=== PATIENT | female | born 1970 | race Caucasian/White ===

== ENCOUNTER 2018-01-17 12:18 | Emergency (ER) | payer BC, SELFPAY ==
[2018-01-17] VITALS (7 sets, daily range): BP systolic 109–135; BP diastolic 68–78; PULSE 78–91; RESP 12–18; TEMP 36.8; O2SAT 99–100
--- NOTE | 2018-01-17 12:29 | ED_ITS ---
HPI - Abdominal Pain <AMPARO Cat - Last Filed: 01/17/18 21:46> General Chief Complaint: Abdominal Pain Stated Complaint: lower right abdominal pain,thinks appendicitis Time Seen by Provider: 01/17/18 12:29 History of Present Illness HPI narrative: 47-year-old female here for complaint of pain into her abdomen right lower quadrant for the past week. She states the pain has worsened over the past day or 2. She describes the pain as stabbing pain. She denies any trauma to the area. She denies any stressors or relievers of the pain. Positive nausea no vomiting. No fevers no chills. She denies any urinary symptoms. Last bowel movement was earlier today and was diarrhea. She denies any recent antibiotic use. She denies any vaginal discharge or bleeding. No other concerns or complaints MD complaint: abdominal pain Related Data Home Medications Medication Instructions Recorded Confirmed alprazolam 1 tab PO DAILY PRN 01/17/18 01/17/18 buspirone 1 tab PO TID 01/17/18 01/17/18 citalopram 20 mg PO DAILY 01/17/18 01/17/18 clindamycin phosphate 1 applic TOPICAL BID 01/17/18 01/17/18 famotidine 20 mg PO DAILY 01/17/18 01/17/18 guaifenesin [Mucinex] 600 mg PO Q12H PRN 01/17/18 01/17/18 triamcinolone acetonide 1 applic TOPICAL BID 01/17/18 01/17/18 Allergies Allergy/AdvReac Type Severity Reaction Status Date / Time No Known Drug Allergies Allergy Verified 01/17/18 12:36 Review of Systems <AMPARO Cat - Last Filed: 01/17/18 21:46> Constitutional Denies chills, Denies fatigue, Denies fever(s), Denies lethargy and Denies weakness Eyes Denies change in vision, Denies eye discharge, Denies irritation and Denies loss of vision ENT Ears, Nose, Mouth, and Throat: Denies change in voice, Denies neck pain and Denies sore throat Cardiovascular Denies dyspnea and Denies dyspnea on exertion Respiratory Denies cough, Denies dyspnea, Denies dyspnea on exertion and Denies wheezing Gastrointestinal Gastrointestinal: Reports abdominal pain Genitourinary Denies hematuria, Denies flank pain, Denies urinary incontinence and Denies urinary urgency Musculoskeletal Denies neck pain Integumentary/Breasts Denies pruritus, Denies erythema, Denies rash and Denies wounds Neurologic Denies confusion, Denies loss of vision and Denies weakness Psychiatric Denies anxiety, Denies confusion, Denies depression, Denies homicidal ideation and Denies suicidal ideation Endocrine Denies fatigue and Denies flushing Allergic/Immunologic Denies wheezing Exam <AMPARO Cat - Last Filed: 01/17/18 21:46> Initial Vital Signs Initial Vital Signs: Vital Signs Temperature 98.2 F 01/17/18 12:34 Pulse Rate 91 H 01/17/18 12:34 Respiratory Rate 18 01/17/18 12:34 Blood Pressure 135/74 H 01/17/18 12:34 Pulse Oximetry 100 01/17/18 12:34 Const General: cooperative and well developed Nutritional Appearance: well nourished Orientation: alert, awake, oriented x3 and not confused HENMT Mouth: oral mucosae normal and moist mucous membranes Eyes Sclera: sclerae normal Cornea: corneas normal Pupils: PERRL EOM: EOM intact bilaterally Resp Effort & Inspection: normal respiratory effort, able to speak in complete sentences, no respiratory distress and no use of accessory muscles Auscultation: clear to auscultation bilaterally, no rales, no rhonchi and no wheezes Cardio Rate: regular rate Rhythm: regular rhythm Heart Sounds: no click, no gallops, no murmurs and no rubs GI Inspection: non-distended Palpation: soft, no hepatosplenomegaly, No guarding, No pulsatile mass and tender (tenderness right lower quadrant) Auscultation: normal bowel sounds <Shemar العلي DO - Last Filed: 01/18/18 07:14> Initial Vital Signs Initial Vital Signs: Vital Signs Temperature 98.2 F 01/17/18 12:34 Pulse Rate 91 H 01/17/18 12:34 Respiratory Rate 18 01/17/18 12:34 Blood Pressure 135/74 H 01/17/18 12:34 Pulse Oximetry 100 01/17/18 12:34 Course <AMPARO Cat - Last Filed: 01/17/18 21:46> Orders Ordered: Discontinued Medications Sodium Chloride (Normal Saline 0.9%) 1,000 mls @ 1,000 mls/hr IV BOLUS ONE Stop: 01/17/18 14:11 Last Infusion: 01/17/18 15:00 Dose: 0 mls/hr Admin: 01/17/18 13:25 Dose: 1,000 mls/hr Ketorolac Tromethamine (Toradol) 30 mg IV NOW ONE Stop: 01/17/18 13:13 Last Admin: 01/17/18 13:24 Dose: 30 mg Ondansetron HCl (Zofran) 4 mg IV NOW ONE Stop: 01/17/18 13:13 Last Admin: 01/17/18 13:24 Dose: 4 mg Vital Signs - 8 hr 01/17/18 13:48 01/17/18 14:45 01/17/18 15:00 Pulse Rate 78 88 84 Respiratory Rate 12 Blood Pressure [Right Arm] 117/71 111/68 109/73 Pulse Oximetry 99 100 100 01/17/18 15:25 01/17/18 15:30 01/17/18 16:02 Pulse Rate 86 81 Respiratory Rate Blood Pressure [Right Arm] 119/78 119/78 122/74 H Pulse Oximetry 100 100 100 <Shemar العلي DO - Last Filed: 01/18/18 07:14> Orders Ordered: Discontinued Medications Sodium Chloride (Normal Saline 0.9%) 1,000 mls @ 1,000 mls/hr IV BOLUS ONE Stop: 01/17/18 14:11 Last Infusion: 01/17/18 15:00 Dose: 0 mls/hr Admin: 01/17/18 13:25 Dose: 1,000 mls/hr Ketorolac Tromethamine (Toradol) 30 mg IV NOW ONE Stop: 01/17/18 13:13 Last Admin: 01/17/18 13:24 Dose: 30 mg Ondansetron HCl (Zofran) 4 mg IV NOW ONE Stop: 01/17/18 13:13 Last Admin: 01/17/18 13:24 Dose: 4 mg Vital Signs - 8 hr 01/17/18 13:48 01/17/18 14:45 01/17/18 15:00 Pulse Rate 78 88 84 Respiratory Rate 12 Blood Pressure [Right Arm] 117/71 111/68 109/73 Pulse Oximetry 99 100 100 01/17/18 15:25 01/17/18 15:30 01/17/18 16:02 Pulse Rate 86 81 Respiratory Rate Blood Pressure [Right Arm] 119/78 119/78 122/74 H Pulse Oximetry 100 100 100 MDM - Abdominal Pain <AMPARO Cat - Last Filed: 01/17/18 21:46> Lab Data Result diagrams: 01/17/18 13:20 01/17/18 13:20 Lab Results 01/17/18 01/17/18 Range/Units 13:20 13:20 WBC 7.5 (4.5-11.0) X10^3/uL RBC 3.69 L (4.0-5.2) X10^6/uL Hgb 13.2 (12.0-16.0) g/dL Hct 38.0 (36-46) % MCV 102.9 H (80-100) fL MCH 35.9 H (26-34) PG MCHC 34.8 (30-36) % RDW 12.9 (11.6-14.8) % Plt Count 305 (150-400) X10^3/uL Neut % (Auto) 71.1 (50-75) % Lymph % (Auto) 16.7 L (25-40) % [place] % (Auto) 7.1 (3-14) % Eos % (Auto) 4.4 H (2-4) % Baso % (Auto) 0.7 (0-2) % Neut # (Auto) 5300 (5601-3360) /uL Sodium 138 (137-145) mmol/L Potassium 4.6 (3.4-5.1) mmol/L Chloride 103 (98-107) mmol/L Carbon Dioxide 26 (22-32) mmol/L BUN 12 (7-17) mg/dL Creatinine 0.80 (0.52-1.04) mg/dL Estimated GFR > 60.0 (>60) mL/min BUN/Creatinine Ratio 15.0 (6-22) Glucose 97 (70-100) mg/dL Calcium 9.4 (8.4-10.2) mg/dL Total Bilirubin 0.4 (0.2-1.3) mg/dL AST 23 (14-36) IU/L ALT 26 (9-52) IU/L Alkaline Phosphatase 80 (38-126) U/L Total Protein 7.1 (6.3-8.2) g/dL Albumin 4.1 (3.5-5.0) g/dL Globulin 3.0 (1.7-4.1) g/dL Albumin/Globulin Ratio 1.4 (1.0-2.8) Lipase 94 (23-300) U/L Imaging Data CT scan - abdomen: Radiologist's impression: PROCEDURE: CT ABDOMEN PELVIS W CON INDICATIONS: Pain to right lower quadrant TECHNIQUE: After the administration of intravenous contrast, 5 mm thick sections acquired from the diaphragm to the symphysis. 5 mm coronal and sagittal reformats were acquired. For radiation dose reduction, the following was used: automated exposure control, adjustment of mA and/or kV according to patient size. COMPARISON: None. FINDINGS: Image quality: Excellent. ABDOMEN: Lung bases: Bibasilar atelectasis. Normal heart size with no pericardial effusion. No hiatal hernia. Solid organs: Liver is normal in size and enhancement. Sub-5 mm hypodensities in the liver, series 3 images 17 and 24 are too small to characterize. Gallbladder appears clear. Biliary system is non dilated. Pancreas enhances normally. Spleen is normal in size and enhancement. No adrenal nodules. Kidneys demonstrate normal size and enhancement, without hydronephrosis. Peritoneum and bowel: Bowel loops demonstrate normal wall thickness and caliber. Normal appendix is seen. No free fluid or air. Nodes and vessels: No retroperitoneal or mesenteric adenopathy by size criteria. Aorta and inferior vena cava are normal in size. Miscellaneous: Fat filled supraumbilical hernia. PELVIS: Genitourinary: Bladder wall thickness is normal. Uterus contains an 8mm hypodensity centrally, probable fibroid. The cervix is prominent measuring 4.1 x 5.6 cm. The left ovary contains a 1.6 cm cyst. The right ovary contains 1.1 CM and 2.4 CM cyst. There is a small amount of right periovarian fluid. Trace free fluid in the cul-de-sac. Miscellaneous: No inguinal hernias or adenopathy. Bones: No suspicious bony lesions. No vertebral body compression fractures. IMPRESSION: 1. Slightly thickened wall 2.4 cm right ovarian cyst with mild periovarian free fluid suggesting leakage from the cyst. This may be causing right lower quadrant pain. Suggest pelvic sonography for further evaluation. 2. Normal appendix is demonstrated. No inflammatory bowel disease seen. 3. Small fat filled periumbilical hernia. Dictated by: Deshaun Mcknight M.D. on 01/17/2018 at 14:32 Approved by: Deshaun Mcknight M.D. on 01/17/2018 at 14:48 MDM Narrative Medical decision making narrative: CT of the abdomen and pelvis was obtained and shows a right ovarian cyst about 2-1/[address] with no other acute findings. CBC Chem panel and lipase were obtained and were unremarkable. Urinalysis was negative for urinary tract infection. [id number] Tylenol or Motrin as needed for discomfort. Follow up with primary care provider for further evaluation and monitoring. For any worsening symptoms return to the emergency room. <Shemar العلي DO - Last Filed: 01/18/18 07:14> Lab Data Lab Results 01/17/18 01/17/18 Range/Units 13:20 13:20 WBC 7.5 (4.5-11.0) X10^3/uL RBC 3.69 L (4.0-5.2) X10^6/uL Hgb 13.2 (12.0-16.0) g/dL Hct 38.0 (36-46) % MCV 102.9 H (80-100) fL MCH 35.9 H (26-34) PG MCHC 34.8 (30-36) % RDW 12.9 (11.6-14.8) % Plt Count 305 (150-400) X10^3/uL Neut % (Auto) 71.1 (50-75) % Lymph % (Auto) 16.7 L (25-40) % [place] % (Auto) 7.1 (3-14) % Eos % (Auto) 4.4 H (2-4) % Baso % (Auto) 0.7 (0-2) % Neut # (Auto) 5300 (5819-3775) /uL Sodium 138 (137-145) mmol/L Potassium 4.6 (3.4-5.1) mmol/L Chloride 103 (98-107) mmol/L Carbon Dioxide 26 (22-32) mmol/L BUN 12 (7-17) mg/dL Creatinine 0.80 (0.52-1.04) mg/dL Estimated GFR > 60.0 (>60) mL/min BUN/Creatinine Ratio 15.0 (6-22) Glucose 97 (70-100) mg/dL Calcium 9.4 (8.4-10.2) mg/dL Total Bilirubin 0.4 (0.2-1.3) mg/dL AST 23 (14-36) IU/L ALT 26 (9-52) IU/L Alkaline Phosphatase 80 (38-126) U/L Total Protein 7.1 (6.3-8.2) g/dL Albumin 4.1 (3.5-5.0) g/dL Globulin 3.0 (1.7-4.1) g/dL Albumin/Globulin Ratio 1.4 (1.0-2.8) Lipase 94 (23-300) U/L Discharge Plan Departure Patient Disposition: Home, Self-Care Clinical Impression: Cyst of right ovary Discharge Date/Time: 01/17/18 16:03 Interventions: ED Discharge Assessment Last Done: 01/17/18 16:03 Instructions: DI for Ovarian Cyst Activity Restrictions/Additional Instructions: CT the abdomen and pelvic ultrasound shows right ovarian cyst approximately 2-1/ 2 cm in size. Signs and symptoms presents as the cause of your pain into year right lower abdomen. Use [id number] Tylenol and Motrin as needed for discomfort. Follow up with her primary care provider next week for further evaluation and treatment and monitoring of the cyst. For any worsening symptoms return to the emergency room. Prescriptions: No Action triamcinolone acetonide 0.5 % cream 1 applic Topical BID RF: 0 alprazolam 0.5 mg tablet 1 tab PO DAILY PRN (Reason: Anxiety) RF: 0 citalopram 20 mg tablet 20 mg PO DAILY RF: 0 buspirone 10 mg tablet 1 tab PO TID RF: 0 clindamycin phosphate 1 % swab 1 applic Topical BID RF: 0 famotidine 20 mg Tablet 20 mg PO DAILY RF: 0 guaifenesin [Mucinex] 600 mg Tablet Extended Release 12hr 600 mg PO Q12H PRN (Reason: Allergy Symptoms) RF: 0 Referrals: [facility] [Provider Group] <Shemar العلي DO - Last Filed: 01/18/18 07:14> [facility]: I was available for consultation during this patient's emergency department encounter
--- NOTE | 2018-01-17 13:13 | DI.CT.S_ITS ---
PROCEDURE: CT ABDOMEN PELVIS W CON INDICATIONS: Pain to right lower quadrant TECHNIQUE: After the administration of intravenous contrast, 5 mm thick sections acquired from the diaphragm to the symphysis. 5 mm coronal and sagittal reformats were acquired. For radiation dose reduction, the following was used: automated exposure control, adjustment of mA and/or kV according to patient size. COMPARISON: None. FINDINGS: Image quality: Excellent. ABDOMEN: Lung bases: Bibasilar atelectasis. Normal heart size with no pericardial effusion. No hiatal hernia. Solid organs: Liver is normal in size and enhancement. Sub-5 mm hypodensities in the liver, series 3 images 17 and 24 are too small to characterize. Gallbladder appears clear. Biliary system is non dilated. Pancreas enhances normally. Spleen is normal in size and enhancement. No adrenal nodules. Kidneys demonstrate normal size and enhancement, without hydronephrosis. Peritoneum and bowel: Bowel loops demonstrate normal wall thickness and caliber. Normal appendix is seen. No free fluid or air. Nodes and vessels: No retroperitoneal or mesenteric adenopathy by size criteria. Aorta and inferior vena cava are normal in size. Miscellaneous: Fat filled supraumbilical hernia. PELVIS: Genitourinary: Bladder wall thickness is normal. Uterus contains an 8mm hypodensity centrally, probable fibroid. The cervix is prominent measuring 4.1 x 5.6 cm. The left ovary contains a 1.6 cm cyst. The right ovary contains 1.1 CM and 2.4 CM cyst. There is a small amount of right periovarian fluid. Trace free fluid in the cul-de-sac. Miscellaneous: No inguinal hernias or adenopathy. Bones: No suspicious bony lesions. No vertebral body compression fractures. IMPRESSION: 1. Slightly thickened wall 2.4 cm right ovarian cyst with mild periovarian free fluid suggesting leakage from the cyst. This may be causing right lower quadrant pain. Suggest pelvic sonography for further evaluation. 2. Normal appendix is demonstrated. No inflammatory bowel disease seen. 3. Small fat filled periumbilical hernia. Dictated by: Deshaun Mcknight M.D. on 01/17/2018 at 14:32 Approved by: Deshaun Mcknight M.D. on 01/17/2018 at 14:48
[2018-01-17] MEDS: KETOROLAC 60 MG/2 ML VIAL 30 MG IV (13:24)
[2018-01-17] MEDS: ONDANSETRON 4 MG/2 ML INJ IV (13:24)
[2018-01-17] MEDS: SODIUM CHLORIDE 0.9% 1,000 ML 1000 ML IV (13:25)
[2018-01-17 13:40] LABS: Add Manual Diff / Slide Review NO; Basophils Percent Auto 0.7 % (0-2); Eosinophils Percent Auto 4.4 % (2-4); Hemoglobin 13.2 g/dL (12.0-16.0); Lymphocytes Percent Auto 16.7 % (25-40); Mean Corpuscular HGB Conc 34.8 % (30-36); Mean Corpuscular Hemoglobin 35.9 PG (26-34); Mean Corpuscular Volume 102.9 fL (80-100); Monocytes Percent Auto 7.1 % (3-14); Neutrophils Absolute Auto 5300 /uL (3000-5900); Neutrophils Percent Auto 71.1 % (50-75); Platelet Count 305 X10^3/uL (150-400); Red Blood Cell Count 3.69 X10^6/uL (4.0-5.2); Red Cell Distribution Width 12.9 % (11.6-14.8); White Blood Cell Count 7.5 X10^3/uL (4.5-11.0)
[2018-01-17 13:52] LABS: Alanine Aminotransferase 26 IU/L (9-52); Albumin 4.1 g/dL (3.5-5.0); Albumin Globulin Ratio 1.4 (1.0-2.8); Alkaline Phosphatase 80 U/L (38-126); Aspartate Aminotransferase 23 IU/L (14-36); Bilirubin Total 0.4 mg/dL (0.2-1.3); Blood Urea Nitrogen 12 mg/dL (7-17); Calcium 9.4 mg/dL (8.4-10.2); Carbon Dioxide 26 mmol/L (22-32); Chloride 103 mmol/L (98-107); Estimated Glomerular Filt Rate > 60.0 mL/min (>60); Glucose 97 mg/dL (70-100); HEMOLYSIS < 15 (0-50); Lipase 94 U/L (23-300); Potassium 4.6 mmol/L (3.4-5.1); Sodium 138 mmol/L (137-145); Total Protein 7.1 g/dL (6.3-8.2)
--- NOTE | 2018-01-17 15:00 | DI.US.S_ITS ---
PROCEDURE: US PELVIC COMPLETE INDICATIONS: OVARIAN CYST ON CT TECHNIQUE: Real-time scanning was performed of the pelvic organs, with image documentation. Additional endovaginal scanning was necessary due to incomplete visualization of the adnexal and endometrial structures by transabdominal scanning. COMPARISON: [facility], CT, CT ABDOMEN PELVIS W CON, 01/17/2018, 13:54. FINDINGS: Transabdominal scanning: Limited scanning through the kidneys shows no hydronephrosis. No pathologic free abdominal or pelvic fluid. Endovaginal scanning: Uterus: Uterus is normal in size at 7.1 x 3.8 x 4.2 cm. The endometrium measures 8.6 mm in combined thickness. Ovaries: The right ovary measures 40 x 22 x 26 mm. There is a complex area of heteroechogenicity in the right ovary, measuring 25 x 19 x 21 mm. A second focus of hypoechogenicity is present measuring 14 x 15 x 14 mm. The left ovary measures 26 x 16 x 21 mm. Focus of hypoechogenicity is present measuring 11 x 12 x 13 mm. IMPRESSION: 1. Complex right ovarian cyst. This could be hemorrhagic. Given size, no additional followup is recommended, unless clinical symptoms/concern persist. 2. Bilateral prominent ovarian follicles are noted. Dictated by: Sharri Duran M.D. on 01/17/2018 at 15:55 Approved by: Sharri Duran M.D. on 01/17/2018 at 16:29
== END 2018-01-17 16:03 | disposition home or self-care (01) ==
PROVIDERS: Emergency Provider Nurse Practitioner Family
DX: N83.201 Unspecified ovarian cyst, right side (principal)
CPT/HCPCS: 36591; 74177; 76830; 76856; 80053; 81003; 81025; 83690; 85025; 96361; 96374; 96375; 99283; 99285; J1885; J2405; Q9967

== ENCOUNTER → 2018-06-03 14:09 | Outpatient (CLI) | payer BC, SELFPAY ==
--- NOTE | 2018-06-03 14:12 | DI.RAD.S_ITS ---
PROCEDURE: XR FINGER RT MIN 2V INDICATIONS: swelling and bruising to distal index finger TECHNIQUE: AP hand, 2 views of the index (2nd) finger(s) acquired. COMPARISON: None. FINDINGS: Bones: There is a minimally comminuted fracture identified involving the tuft of the distal phalanx of the index finger. No involvement of the joint is evident. This fracture may be subacute given the rounded appearance. There are mild degenerative changes involving the metacarpophalangeal and interphalangeal joints of the hand. No suspicious osseous lesions are identified. No additional fractures are evident. Soft tissues: No suspicious soft tissue calcifications. Soft tissue swelling overlying the distal aspect of the index finger is present. No unexpected radiopaque foreign bodies are evident. IMPRESSION: Tuft fracture involving the distal phalanx of the right index finger. Dictated by: Bret Caban M.D. on 06/03/2018 at 13:33 Approved by: Bret Caban M.D. on 06/03/2018 at 13:35
== END ==
PROVIDERS: PCP Physician Assistant; Visit Provider Physician Assistant
DX: S62.630A Displaced fracture of distal phalanx of right index finger, initial encounter for closed fracture (principal); M79.89 Other specified soft tissue disorders
CPT/HCPCS: 73140

== ENCOUNTER → 2018-07-04 14:35 | Outpatient (CLI) | payer BC, SELFPAY ==
--- NOTE | 2018-07-04 | DI.MG.S_ITS ---
BILATERAL DIGITAL SCREENING MAMMOGRAM 3D/2D WITH CAD: 07/04/2018 CLINICAL: Routine screening. Family history of breast cancer. Comparison is made to exams dated: 06/05/2017 mammogram and 05/17/2017 mammogram - [facility]. The tissue of both breasts is extremely dense, which lowers the sensitivity of mammography. Current study was also evaluated with a Computer Aided Detection (CAD) system. No significant masses, calcifications, or other findings are seen in either breast. There has been no significant interval change. IMPRESSION: NEGATIVE There is no mammographic evidence of malignancy. A 1 year screening mammogram is recommended. This exam was interpreted at Station ID: [id number]. NOTE: For mammograms, a report in lay terms will be sent to the patient. Approximately 15% of breast malignancies will not be visualized mammographically. In the management of a palpable breast mass, a negative mammogram must not discourage biopsy of a clinically suspicious lesion. Electronically Signed By: Barry daniel/graciela:07/04/2018 21:27:58 letter sent: Normal Exam ACR BI-RADS Category 1: Negative 3341F
== END ==
PROVIDERS: PCP Physician Assistant; Visit Provider Physician Assistant
DX: Z12.31 Encounter for screening mammogram for malignant neoplasm of breast (principal); Z80.3 Family history of malignant neoplasm of breast
CPT/HCPCS: 77063; 77067

== ENCOUNTER → 2019-07-07 11:38 | Outpatient (CLI) | payer BC, SELFPAY ==
--- NOTE | 2019-07-07 | DI.MG.S_ITS ---
BILATERAL DIGITAL SCREENING MAMMOGRAM 3D/2D WITH CAD: 07/07/2019 CLINICAL: Routine screening. Family history of breast cancer. Comparison is made to exams dated: 07/04/2018 mammogram, 06/05/2017 mammogram, and 05/17/2017 mammogram - [facility]. The tissue of both breasts is extremely dense, which lowers the sensitivity of mammography. Current study was also evaluated with a Computer Aided Detection (CAD) system. No significant masses, calcifications, or other findings are seen in either breast. There has been no significant interval change. IMPRESSION: NEGATIVE There is no mammographic evidence of malignancy. A 1 year screening mammogram is recommended. This exam was interpreted at Station ID: [id number]. NOTE: For mammograms, a report in lay terms will be sent to the patient. Approximately 15% of breast malignancies will not be visualized mammographically. In the management of a palpable breast mass, a negative mammogram must not discourage biopsy of a clinically suspicious lesion. Electronically Signed By: Courtney gonzalez/graciela:07/08/2019 08:30:22 letter sent: Normal Exam ACR BI-RADS Category 1: Negative 3341F
== END ==
PROVIDERS: PCP Physician Assistant; Visit Provider Physician Assistant
DX: Z12.31 Encounter for screening mammogram for malignant neoplasm of breast (principal); Z80.3 Family history of malignant neoplasm of breast
CPT/HCPCS: 77063; 77067

== ENCOUNTER → 2020-07-17 15:59 | Outpatient (CLI) | payer BC, SELFPAY ==
--- NOTE | 2020-07-17 16:00 | DI.MG.S_ITS ---
BILATERAL DIGITAL SCREENING MAMMOGRAM 3D/2D WITH CAD: 07/17/2020 CLINICAL: Routine screening. Family history of breast cancer. Comparison is made to exams dated: 07/07/2019 mammogram, 07/04/2018 mammogram, and 06/05/2017 mammogram - [facility]. The tissue of both breasts is extremely dense, which lowers the sensitivity of mammography. Current study was also evaluated with a Computer Aided Detection (CAD) system. No significant masses, calcifications, or other findings are seen in either breast. There has been no significant interval change. IMPRESSION: NEGATIVE There is no mammographic evidence of malignancy. A 1 year screening mammogram is recommended. This exam was interpreted at Station ID: [id number]. NOTE: For mammograms, a report in lay terms will be sent to the patient. Approximately 15% of breast malignancies will not be visualized mammographically. In the management of a palpable breast mass, a negative mammogram must not discourage biopsy of a clinically suspicious lesion. Electronically Signed By: Олег bullock/graciela:07/19/2020 07:57:15 letter sent: Normal Exam ACR BI-RADS Category 1: Negative 3341F
== END ==
PROVIDERS: PCP Physician Assistant; Referring Provider Physician Assistant; Visit Provider Physician Assistant
DX: Z12.31 Encounter for screening mammogram for malignant neoplasm of breast (principal); Z80.3 Family history of malignant neoplasm of breast
CPT/HCPCS: 77063; 77067

== ENCOUNTER → 2021-01-07 14:27 | Outpatient (CLI) | payer BC, SELFPAY ==
[2021-01-07] MEDS: COVID-19 VACC, Ad26(JANSSEN)/PF 0.5 ML IM (14:31)
== END ==
PROVIDERS: PCP Physician Assistant; Visit Provider Internal Medicine
DX: Z23 Encounter for immunization (principal)
CPT/HCPCS: 0031A; 91303

== ENCOUNTER 2021-03-22 13:16 | Emergency (ER) | payer BC, SELFPAY ==
[2021-03-22 13:25] VITALS: BP 141/99; PULSE 101; RESP 16; TEMP 36.6; O2SAT 96
== END 2021-03-22 13:54 | disposition left against medical advice (07) ==
PROVIDERS: Emergency Provider Emergency Medicine; PCP Physician Assistant
CPT/HCPCS: 99281

== ENCOUNTER → 2021-08-16 16:43 | Outpatient (CLI) | payer BC, SELFPAY ==
--- NOTE | 2021-08-16 | DI.MG.S_ITS ---
BILATERAL DIGITAL SCREENING MAMMOGRAM 3D/2D WITH CAD: 08/16/2021 CLINICAL: Routine screening. Family history of breast cancer. Comparison is made to exams dated: 07/17/2020 mammogram, 07/07/2019 mammogram, and 07/04/2018 mammogram - [facility]. The tissue of both breasts is extremely dense, which lowers the sensitivity of mammography. Current study was also evaluated with a Computer Aided Detection (CAD) system. No significant masses, calcifications, or other findings are seen in either breast. There has been no significant interval change. IMPRESSION: NEGATIVE There is no mammographic evidence of malignancy. A 1 year screening mammogram is recommended. This exam was interpreted at Station ID: [id number]. NOTE: For mammograms, a report in lay terms will be sent to the patient. Approximately 15% of breast malignancies will not be visualized mammographically. In the management of a palpable breast mass, a negative mammogram must not discourage biopsy of a clinically suspicious lesion. Electronically Signed By: Serg Garcia M.D., jr/graciela:08/17/2021 09:35:36 letter sent: Normal Exam ACR BI-RADS Category 1: Negative 3341F
== END ==
PROVIDERS: PCP Physician Assistant; Referring Provider Physician Assistant; Visit Provider Physician Assistant
DX: Z12.31 Encounter for screening mammogram for malignant neoplasm of breast (principal)
CPT/HCPCS: 77063; 77067

== ENCOUNTER → 2022-08-30 08:16 | Outpatient (CLI) | payer BC, SELFPAY ==
--- NOTE | 2022-08-30 | DI.MG.S_ITS ---
BILATERAL DIGITAL SCREENING MAMMOGRAM 3D/2D WITH CAD: 08/30/2022 CLINICAL: Routine screening. Comparison is made to exams dated: 08/16/2021 mammogram, 07/17/2020 mammogram, 07/07/2019 mammogram, and 07/04/2018 mammogram - [facility]. Both breasts are extremely dense, which lowers the sensitivity of mammography (category d />75% glandular tissue). Current study was also evaluated with a Computer Aided Detection (CAD) system. There is a possible focal asymmetry in the right breast central to the nipple in the retroareolar region. This is more prominent. No other significant masses, calcifications, or other findings are seen in either breast. IMPRESSION: INCOMPLETE: NEEDS ADDITIONAL IMAGING EVALUATION The possible focal asymmetry in the right breast is indeterminate. Additional views with possible ultrasound are recommended. Based on Tyrer-Cuzick model (a risk assessment model), the patient's lifetime risk is 21.6% and her 10 year risk is 6.2%. If a patient has an elevated risk, a more comprehensive evaluation should be considered and/or a referral to a genetic counselor. The [place] [employer], [employer], and NCCN Guidelines advise the consideration of Breast MRI as an adjunct to screening mammography in patients whose Lifetime risk to develop breast cancer is 20% or higher. This exam was interpreted at Station ID: [id number]. NOTE: For mammograms, a report in lay terms will be sent to the patient. Approximately 15% of breast malignancies will not be visualized mammographically. In the management of a palpable breast mass, a negative mammogram must not discourage biopsy of a clinically suspicious lesion. Electronically Signed By: Sunil Campos M.D. [facility] [place]/:08/30/2022 10:44:23 letter sent: Additional Imaging Needed ACR BI-RADS Category 0: Incomplete [id number]
== END ==
PROVIDERS: PCP Physician Assistant; Referring Provider Physician Assistant; Visit Provider Physician Assistant
DX: Z12.31 Encounter for screening mammogram for malignant neoplasm of breast (principal)
CPT/HCPCS: 77063; 77067

== ENCOUNTER → 2022-09-22 11:36 | Outpatient (CLI) | payer BC, SELFPAY ==
--- NOTE | 2022-09-22 | DI.US.S_ITS ---
LIMITED ULTRASOUND OF RIGHT BREAST: 09/22/2022 CLINICAL: Patient returns today to evaluate an asymmetry in the right breast. Comparison is made to exams dated: 09/22/2022 mammogram, 08/30/2022 mammogram, 08/16/2021 mammogram, and 07/17/2020 mammogram - [facility]. Real-time ultrasound of the right breast 2-5 o'clock, and retroareolar regions was performed. Green scale images of the real-time examination were reviewed. No significant abnormalities were seen sonographically in the right breast. IMPRESSION: NEGATIVE There is no sonographic evidence of malignancy. There is no abnormality seen in the right breast to correspond with the mammography finding which is consistent with normal fibroglandular tissue. Return to annual mammogram screening schedule is recommended. This exam was interpreted at Station ID: [id number]. Electronically Signed By: Jerry davis/graciela:09/22/2022 12:49:57 letter sent: Normal Exam Ultrasound BI-RADS: 1 Negative
--- NOTE | 2022-09-22 | DI.MG.S_ITS ---
UNILATERAL RIGHT DIGITAL DIAGNOSTIC MAMMOGRAM 3D/2D WITH ADDITIONAL VIEWS: 09/22/2022 CLINICAL: Additional evaluation requested from prior study. Comparison is made to exams dated: 08/30/2022 mammogram, 08/16/2021 mammogram, 07/17/2020 mammogram, and 07/07/2019 mammogram - [facility]. The right breast is extremely dense, which lowers the sensitivity of mammography (category d />75% glandular tissue). The possible focal asymmetry in the right breast central to the nipple in the retroareolar region is not reproduced and presumably represented superimposed breast tissue. No other significant masses or calcifications are seen in the breast. IMPRESSION: INCOMPLETE: NEEDS ADDITIONAL IMAGING EVALUATION An ultrasound is recommended to confirm the no longer seen focal asymmetry in the right breast central to the nipple in the retroareolar region. Based on Tyrer-Cuzick model (a risk assessment model), the patient's lifetime risk is 21.6% and her 10 year risk is 6.2%. If a patient has an elevated risk, a more comprehensive evaluation should be considered and/or a referral to a genetic counselor. The [place] [employer], [employer], and NCCN Guidelines advise the consideration of Breast MRI as an adjunct to screening mammography in patients whose Lifetime risk to develop breast cancer is 20% or higher. This exam was interpreted at Station ID: [id number]. NOTE: For mammograms, a report in lay terms will be sent to the patient. Approximately 15% of breast malignancies will not be visualized mammographically. In the management of a palpable breast mass, a negative mammogram must not discourage biopsy of a clinically suspicious lesion. Electronically Signed By: Jerry davis/[email or web address]:09/22/2022 12:47:35 ACR BI-RADS Category 0: Incomplete [id number]
== END ==
PROVIDERS: PCP Physician Assistant; Referring Provider Physician Assistant; Visit Provider Physician Assistant
DX: R92.8 Other abnormal and inconclusive findings on diagnostic imaging of breast (principal)
CPT/HCPCS: 76642; 77065; G0279

== ENCOUNTER → 2023-10-05 08:18 | Outpatient (CLI) | payer BC, SELFPAY ==
--- NOTE | 2023-10-05 08:19 | DI.MG.S_ITS ---
BILATERAL DIGITAL SCREENING MAMMOGRAM 3D/2D WITH CAD: 10/05/2023 CLINICAL: Routine screening. Family history of breast cancer. Comparison is made to exams dated: 09/22/2022 mammogram, 08/30/2022 mammogram, 08/16/2021 mammogram, and 07/17/2020 mammogram - [facility]. Both breasts are extremely dense, which lowers the sensitivity of mammography (category d />75% glandular tissue). Current study was also evaluated with a Computer Aided Detection (CAD) system. No significant masses, calcifications, or other findings are seen in either breast. There has been no significant interval change. IMPRESSION: NEGATIVE There is no mammographic evidence of malignancy. A 1 year screening mammogram is recommended. Based on Tyrer-Cuzick model (a risk assessment model), the patient's lifetime risk is 21.4% and her 10 year risk is 6.4%. If a patient has an elevated risk, a more comprehensive evaluation should be considered and/or a referral to a genetic counselor. The [place] [employer], [employer], and NCCN Guidelines advise the consideration of Breast MRI as an adjunct to screening mammography in patients whose Lifetime risk to develop breast cancer is 20% or higher. This exam was interpreted at Station ID: [id number]. NOTE: For mammograms, a report in lay terms will be sent to the patient. Approximately 15% of breast malignancies will not be visualized mammographically. In the management of a palpable breast mass, a negative mammogram must not discourage biopsy of a clinically suspicious lesion. Electronically Signed By: Maira Hylton M.D., PH.D derek/[email or web address]:10/05/2023 23:19:44 letter sent: Normal Exam ACR BI-RADS Category 1: Negative [id number]
== END ==
LOC: MAMMO 08:19
PROVIDERS: PCP Physician Assistant; Referring Provider Physician Assistant; Visit Provider Physician Assistant
DX: Z12.31 Encounter for screening mammogram for malignant neoplasm of breast (principal); Z80.3 Family history of malignant neoplasm of breast; R92.343 Mammographic extreme density, bilateral breasts
CPT/HCPCS: 77063; 77067